=== PATIENT | male | born 1995 | race African-American/Black ===

== ENCOUNTER 2023-12-31 10:01 | Emergency (ER) | payer SELFPAY ==
[~2023-12-31] VITALS: Ht 172.7 cm; Wt 70.0 kg
[2023-12-31 10:26] VITALS: O2SAT 98
[2023-12-31 10:47] LABS: BASOPHILS % 0.8 % (0.0-2.0); HEMATOCRIT. 48.5 % (42.0-52.0); MEAN CORPUSCULAR HGB CONC 32.9 g/dL (31.0-37.0); MEAN CORPUSCULAR VOLUME 91.2 fL (80.0-94.0); MEAN PLATELET VOLUME 9.4 fl (7.4-10.4); MONOCYTES % 8.4 % (2.0-8.0); NEUTROPHILS % 59.8 % (40.0-76.0); PLATELET 202 x1000/uL (130-400); RED BLOOD CELL COUNT 5.32 mill/uL (4.7-6.1); RED CELL DISTRIBUTION WIDTH 13.3 % (11.6-14.6); WHITE BLOOD COUNT 6.2 x1000/uL (4.5-11.0)
[2023-12-31 10:52] LABS: CHLORIDE 108 mEq/L (98-107); POTASSIUM 4.4 mEq/L (3.5-5.1); SODIUM 140 mEq/L (136-145)
[2023-12-31 10:53] LABS: CALCIUM 9.8 mg/dL (8.7-10.4); CARBON DIOXIDE 29 mEq/L (21-32)
[2023-12-31 10:58] LABS: CREATININE 1.1 mg/dL (0.6-1.3); GLUCOSE 102 mg/dL (70-105); UREA NITROGEN BLOOD 5 mg/dL (9-23)
[2023-12-31] MEDS: ONDANSETRON 4MG ODT PO ONE (11:15)
[2023-12-31] MEDS: FAMOTIDINE 20MG TABLET PO ONE (11:15)
[2023-12-31 11:22] LABS: ALANINE AMINOTRANSFERASE 10 IU/L (10-49); ALBUMIN 4.5 g/dL (3.2-4.8); ASPARTATE AMINOTRANSFERASE 17 IU/L (<34); BILIRUBIN DIRECT 0.3 mg/dL (<=3.0); BILIRUBIN TOTAL 1.3 mg/dL (0.1-1.0); PROTEIN TOTAL 7.1 g/dL (6.0-8.3)
[2023-12-31 11:29] LABS: CLARITY URINE CLEAR (CLEAR); COLOR URINE YELLOW (YELLOW); GLUCOSE URINE NEGATIVE (NEGATIVE); KETONES URINE TRACE (NEGATIVE); LEUKOCYTE ESTERASE URINE NEGATIVE (NEGATIVE); NITRITE URINE NEGATIVE (NEGATIVE); OCCULT BLOOD URINE NEGATIVE (NEGATIVE); PH URINE 6.5 (4.5-8.0); PROTEIN URINE NEGATIVE (NEGATIVE); SPECIFIC GRAVITY URINE 1.019 (1.005-1.030)
[2023-12-31] MEDS: SUCRALFATE 1G TABLET PO SCH (11:58)
[2023-12-31] MEDS ORDERED: FAMO-134 PO (12:47)
[2023-12-31 12:57] VITALS: BP 123/69; PULSE 68; RESP 18; TEMP 36.55848; O2SAT 99
== END 2023-12-31 12:58 | disposition home or self-care (01) ==
LOC: ER 10:31
DX: R10.13 Epigastric pain (principal); R11.0 Nausea
CPT/HCPCS: 99285; 71045; 80076; 80048; 81003; 83690; 85025; 36415; 93005; Q0162

== ENCOUNTER 2024-06-12 05:41 | Emergency (ER) | payer MEDICAID ==
[~2024-06-12] VITALS: Ht 165.1 cm; Wt 73.0 kg
[~2024-06-12 05:41] MED LIST: FAMO-134 PO
[2024-06-12 05:58] VITALS: TEMP 37.1; O2SAT 100
[2024-06-12 06:46] VITALS: BP 154/100; PULSE 74; RESP 18
[2024-06-12] MEDS: IBUPROFEN 600MG TABLET PO ONE (06:46)
== END 2024-06-12 08:50 | disposition home or self-care (01) ==
LOC: ER 05:59
DX: M25.532 Pain in left wrist (principal)
CPT/HCPCS: 73110; 99283